=== PATIENT | female | born 1995 | race Caucasian/White ===

== ENCOUNTER 2016-10-27 12:34 | Emergency (ER) | payer MEDICAID ==
--- NOTE | 2016-10-27 13:03 | ED Physician Chart ---
Chief Complaint/HPI - Patient Information Date Seen:: 10/27/16 Time Seen:: 12:53 Chief Complaint:: DIZZINESS x 4 DAYS History of Present Illness:: This 21-year-old female has been having intermittent episodes of feeling lightheaded and like she might faint. At one point in time she did say that she feels like the room is moving around her. There is been no associated headache, nausea or vomiting. The patient has been having intermittent episodes of diarrhea as many as 5 times a day since early September. The patient has never experienced any syncopal episodes, seizure or chest pain. NO decrease in hearing or tinnitus. She has minimal if any shortness of breath but does complain of nasal congestion, cough which is productive of green to yellow sputum and sometimes blood. Patient does not take control pills has no prior history of DVT or pulmonary embolism. The symptoms of dizziness are not provoked by any type of activity or improved by any type of activity. Review of Systems - Review of Systems General/Constitutional: No fever, No chills, Weakness, No diaphoresis, No edema , No loss of appetite Skin: No skin lesions, No rash, No bruising Head: No headache, Light headed Eyes: Acuity change, No loss of vision, No pain, No diplopia ENT: No earache, No nasal drainage, No sore throat, No tinnitus, Other (nasal stuffiness.) Neck: No neck pain, No swelling, No thyromegaly, No stiffness, No mass noted Cardio Vascular: No chest pain, No palpitations, No orthopnea, No edema Pulmonary: No SOB, Cough, Sputum, Other (intermittent hemoptysis.) GI: No nausea, No vomiting, Diarrhea, No pain, No hematemesis G/U: No dysuria, No frequency, No hematuria Spinner Open End: No vaginal discharge, Other (patient has irregular menstrual periods.) Musculoskeletal: No bone or joint pain, No muscle pain Psychiatric: No prior psych history, No depression, No suicidal ideation Hematopoietic: No bruising, No lymphadenopathy Allergic/Immuno: No urticaria, No angioedema Neurological: No syncope, No focal symptoms, No weakness, No paresthesia, No headache, No seizure, Dizziness, No confusion Family Medical History - Family Member Mother History Unknown: Yes Physical Exam - Physical Examination General/Constitutional: Awake, Well-developed, well-nourished, Alert, No distress, GCS 15, Non-toxic appearing, Ambulatory Head: Atraumatic Other Head comments:: No visible or palpable evidence of acute head injury. Eyes: Lids, conjuctiva normal, PERRL, EOMI Other Eyes comments:: No nystagmus. Sclerae nonicteric. Skin: Nl inspection, No rash, No skin lesions, No ecchymosis, Well hydrated, No lymphadenopathy Other Skin comments:: No petechiae. ENMT: TM canals nl, Nasal exam nl, Lips, teeth, gums nl, Oropharynx nl, Tonsils nl Other ENMT comments:: No peritonsillar abscess or fullness. Neck: Nontender, No JVD, No nuchal rigidity, No mass, No stridor Respiratory: Nl effort/Exclusion, No Wheeze/Rhonchi/Rales Cardio Vascular: RRR, No murmur, gallop, rubs, NL S1 S2 Other Cardio Vascular comments:: Patient has good pulses in all 4 extremities. GI: No tenderness/rebounding/guarding, No organomegaly, No hernia, Normal BS's, Nondistended, No mass/bruits, No McBurney tenderness Other GI comments:: Rectal examination deferred to my discretion. If the hemoglobin comes back at a level less than 10 g percent would do a rectal exam for evaluation of GI bleeding. : No CVA tenderness Extremities: No tenderness or effusion, Full ROM, normal strength in all extremities, No edema, Normal digits & nails Neuro/Psych: Alert/oriented, DTR's symmetric, Normal sensory exam, Normal motor strength, Judgement/insight normal, Mood normal, Normal gait, No focal deficits Other Neuro/Psych comments:: No pronator drift. Normal finger-nose bilaterally. Normal heel hoang bilaterally. No dysdiadochokinesis. Romberg negative. Misc: Normal back, No paraspinal tenderness Labs/Radiology/EKG Results - Lab Results Results: Laboratory Tests 10/27/16 10/27/16 10/27/16 13:25 13:25 13:38 WBC 9.8 RBC 4.95 Hgb 14.6 Hct 42.4 MCV 85.8 MCH 29.4 MCHC Differential 34.3 RDW 10.9 L Plt Count 291 MPV 8.8 Neutrophils % 71.0 Lymphocytes % 20.4 Monocytes % 6.4 Eosinophils % 2.0 Basophils % 0.2 D-Dimer Sodium Potassium Chloride Carbon Dioxide Anion Gap BUN Creatinine Est GFR ( Amer) Est GFR (Non-Af Amer) BUN/Creatinine Ratio Glucose Calcium Total Bilirubin AST ALT Alkaline Phosphatase Total Protein Albumin Globulin Albumin/Globulin Ratio Urine Source RANDOM Urine Color YELLOW Urine Clarity CLEAR Urine pH 7.0 Ur Specific [place] 1.020 Urine Protein NEGATIVE Urine Glucose (UA) NEGATIVE Urine Ketones NEGATIVE Urine Blood SMALL H Urine Nitrate NEGATIVE Urine Bilirubin NEGATIVE Urine Urobilinogen 0.2 Ur Leukocyte Esterase NEGATIVE Urine RBC 0-2 Urine WBC 0-2 Ur Epithelial Cells MODERATE Urine Bacteria FEW Urine Test NEGATIVE 10/27/16 10/27/16 13:38 13:38 WBC RBC Hgb Hct MCV MCH MCHC Differential RDW Plt Count MPV Neutrophils % Lymphocytes % Monocytes % Eosinophils % Basophils % D-Dimer < 100 L Sodium 137 Potassium 4.0 Chloride 106 Carbon Dioxide 24.5 Anion Gap 10.5 BUN 8 Creatinine 0.7 Est GFR ( Amer) > 60.0 Est GFR (Non-Af Amer) > 60.0 BUN/Creatinine Ratio 11.4 Glucose 100 Calcium 10.0 Total Bilirubin 0.6 AST 16 ALT 14 Alkaline Phosphatase 68 Total Protein 8.1 Albumin 4.6 Globulin 3.5 Albumin/Globulin Ratio 1.3 Urine Source Urine Color Urine Clarity Urine pH Ur Specific [place] Urine Protein Urine Glucose (UA) Urine Ketones Urine Blood Urine Nitrate Urine Bilirubin Urine Urobilinogen Ur Leukocyte Esterase Urine RBC Urine WBC Ur Epithelial Cells Urine Bacteria Urine Test Urine test was negative. UA was negative for URI. NO electrolyte abnormality. NO anemia. NO Leukocytosis. - EKG Interpretations EKG Time:: 13:27 Rhythm: normal sinus rhythm with no ectopy. [place]: normal QRS axis. Rate: 74 Comments:: Normal OK interval. Normal QRS duration. Normal QT interval. No Q waves. No ST segment elevation or depression. No Brugada syndrome. No prolonged QT interval. Assessment - Assessment General Assessment: CASE SUMMARY: This 21 year old female presents with intermittent "dizziness" that began 4 days ago. The patient best characterized the "dizziness" as a sensation of light headedness or that she may faint. The patient has never had a syncopal event. At one point she said the room seemed to be moving, but she denied any spinning sensation, nausea or vomiting. She had no hearing loss or tinnitus. She has had episodes of diarrhea over the past month, but she did not have any electrolyte abnormalities or signs of dehydration. Her EKG was normal ruling out prolonged QT syndrome and Brugada's syndrome. The patient was discharged with diagnosis of Dizziness of unclear etiology. At the time of discharge the pt was steady on her feet and in no distress. MDM DDX of "DIZZINESS": NOT Labyrinthitis based on patient's history and exam. NOT cerebellar ischemia based on neurologic exam. NOT alcohol intoxicaton based on patients denial of use and physical exam. NOT prolonged QT syndrome based on EKG. NOT Brugata's syndrom based on normal EKG. NOT pulmonary embolus based on Well's score of "1" for hemoptysis and negative D-dimer. NOT electrolyte disorder based on lab results. NOT anemia based on normal HBG level. ED Septic Shock - . Is Septic Shock (SBP<90, OR Lactate>4 mmol\\L) present?: No Reassessment (Disposition) - Reassessment Reassessment Condition:: Improved - Diagnosis Diagnosis:: DIZZINESS, UNCLEAR ETIOLOGY FOLLOW UP WITH DR. ZAMORA THIS COMING WEEK. TAKE THE COPIES OF YOUR LAB RESULTS WITH YOU. RETURN TO THE ER IF YOUR SYMPTOMS WORSEN. ED Discharge Plan - Patient Disposition Admit/Discharge/Transfer: PT DISCHARGED HOME Condition at Disposition: Improved Instructions: Dizziness Accepting Physician: El Zamora [Primary Care Provider] - 1-3 Days
[2016-10-27 13:52] LABS: URINE BILIRUBIN NEGATIVE (NEGATIVE); URINE COLOR YELLOW; URINE GLUCOSE (UA) NEGATIVE (NEGATIVE)
[2016-10-27 13:53] LABS: URINE BLOOD SMALL (NEGATIVE); URINE KETONE NEGATIVE (NEGATIVE); URINE PROTEIN NEGATIVE (NEGATIVE); URINE UROBILINOGEN 0.2 E.U./dL (0.2 - 1.0)
[2016-10-27 13:54] LABS: % BASOPHILS 0.2 % (0.0-2.0); % LYMPHOCYTES 20.4 % (20.0-50.0); % MONOCYTES 6.4 % (2.0-10.0); HEMATOCRIT 42.4 % (35.0-45.0); HEMOGLOBIN 14.6 gm/dL (11.7-15.5); MEAN CELL VOLUME 85.8 fl (81-100); MEAN CORPUSCULAR HEMOGLOBIN 29.4 pg (27.0-31.0); MEAN CORPUSCULAR HGB CONC 34.3 pg (28.0-36.0); MEAN PLATELET VOLUME 8.8 fl; PLATELET COUNT 291 Th/cmm (150-400); RED BLOOD COUNT 4.95 Mil/cmm (3.80-5.10); RED CELL DISTRIBUTION WIDTH 10.9 % (11.5-20.0); WHITE BLOOD COUNT 9.8 Th/cmm (4.8-10.8)
[2016-10-27 13:58] LABS: URINE RBC 0-2 /hpf (0-5); URINE WBC 0-2 /hpf (0-5)
[2016-10-27 13:59] LABS: URINE BACTERIA FEW /hpf (NONE SEEN); URINE EPITHELIAL CELLS MODERATE /lpf (FEW)
[2016-10-27 14:05] LABS: ALB/GLOB RATIO 1.3 (1.0-1.8); ALKALINE PHOSPHATASE 68 U/L (34-104); ANION GAP 10.5 (7.0-16.0); BILIRUBIN,TOTAL 0.6 mg/dL (0.3-1.0); BUN - UREA NITROGEN 8 mg/dL (7-25); BUN/CREATININE RATIO 11.4; CARBON DIOXIDE 24.5 mEq/L (21.0-31.0); CHLORIDE 106 mEq/L (98-107); CREATININE - SERUM 0.7 mg/dL (0.6-1.2); GLUCOSE 100 mg/dL (70-105); SGOT 16 U/L (13-39); SGPT/ALT 14 U/L (7-52); SODIUM SERUM 137 mEq/L (136-145)
--- NOTE | 2016-10-27 14:25 | Diagnostic Imaging Report ---
CHEST X-RAY: AP view INDICATION: Cough and hemoptysis COMPARISON: None FINDINGS: There is no focal consolidation or pleural effusions Note, the costophrenic angles are relatively visualized. The heart is normal in size. The osseous structures demonstrate no acute abnormalities. IMPRESSION: No acute cardiopulmonary disease.
== END 2016-10-27 16:04 | disposition home or self-care (01) ==
LOC: ER 12:34
DX: R42 Dizziness and giddiness (principal); Z88.2 Allergy status to sulfonamides
CPT/HCPCS: 36415-UA; 71010-TC; 80053-TC; 81001-TC; 81025-TC; 85025-TC; 85379-TC; 93005

== ENCOUNTER 2016-11-24 11:47 | Emergency (ER) | payer MEDICAID ==
[2016-11-24 12:35] VITALS: BP 129/96
[2016-11-24 13:14] LABS: % BASOPHILS 0.1 % (0.0-2.0); % EOSINOPHILS 6.2 % (0.0-5.0); % LYMPHOCYTES 21.1 % (20.0-50.0); % MONOCYTES 6.8 % (2.0-10.0); % NEUTROPHILS 65.8 % (40.0-80.0); HEMATOCRIT 43.2 % (35.0-45.0); HEMOGLOBIN 14.5 gm/dL (11.7-15.5); MEAN CORPUSCULAR HEMOGLOBIN 28.5 pg (27.0-31.0); MEAN CORPUSCULAR HGB CONC 33.5 pg (28.0-36.0); MEAN PLATELET VOLUME 8.7 fl; NEUTROPHILE ABSOLUTE 5.9 Th/cmm (1.8-8.0); PLATELET COUNT 253 Th/cmm (150-400); RED BLOOD COUNT 5.08 Mil/cmm (3.80-5.10)
[2016-11-24 13:27] LABS: URINE COLOR YELLOW
[2016-11-24 13:28] LABS: URINE BILIRUBIN NEGATIVE (NEGATIVE); URINE GLUCOSE (UA) NEGATIVE (NEGATIVE); URINE KETONE NEGATIVE (NEGATIVE)
[2016-11-24 13:29] LABS: URINE BLOOD TRACE (NEGATIVE); URINE PROTEIN NEGATIVE (NEGATIVE); URINE UROBILINOGEN 0.2 E.U./dL (0.2 - 1.0)
[2016-11-24 13:30] LABS: ALB/GLOB RATIO 1.3 (1.0-1.8); ALKALINE PHOSPHATASE 74 U/L (34-104); ANION GAP 8.1 (7.0-16.0); BILIRUBIN,TOTAL 0.7 mg/dL (0.3-1.0); BUN - UREA NITROGEN 9 mg/dL (7-25); BUN/CREATININE RATIO 12.9; CALCIUM SERUM 9.9 mg/dL (8.6-10.3); CARBON DIOXIDE 25.7 mEq/L (21.0-31.0); CHLORIDE 105 mEq/L (98-107); CREATININE - SERUM 0.7 mg/dL (0.6-1.2); GLUCOSE 87 mg/dL (70-105); POTASSIUM SERUM 3.8 mEq/L (3.5-5.1); SGOT 21 U/L (13-39); SGPT/ALT 27 U/L (7-52); SODIUM SERUM 135 mEq/L (136-145)
[2016-11-24 13:48] LABS: AMPHETAMINE URINE NEGATIVE (NEGATIVE); BARBITURATES URINE NEGATIVE (NEGATIVE); METHADONE URINE NEGATIVE (NEGATIVE)
[2016-11-24 14:00] LABS: URINE RBC 0-2 /hpf (0-5); URINE WBC 0-2 /hpf (0-5)
[2016-11-24 14:01] LABS: URINE BACTERIA FEW /hpf (NONE SEEN); URINE EPITHELIAL CELLS MODERATE /lpf (FEW)
--- NOTE | 2016-11-24 14:13 | ED Physician Chart ---
Chief Complaint/HPI - Patient Information Date Seen:: 11/24/16 Time Seen:: 12:13 Allergies:: Allergies Allergy/AdvReac Type Severity Reaction Status Date / Time Sulfa (Sulfonamide Allergy Verified 10/27/16 12:56 Antibiotics) Vitals:: Vital Signs - 8 hr 11/24/16 11/24/16 11:57 12:04 Temp 97.9 F HR 82 RR 17 BP 129/96 129/96 O2 Sat % 97 Family Medical History - Family Member Mother History Unknown: Yes Hx Family Cancer: Yes Labs/Radiology/EKG Results - Lab Results Results: Laboratory Tests 11/24/16 11/24/16 11/24/16 12:50 12:50 12:50 WBC RBC Hgb Hct MCV MCH MCHC Differential RDW Plt Count MPV Neutrophils % Lymphocytes % Monocytes % Eosinophils % Basophils % Sodium Potassium Chloride Carbon Dioxide Anion Gap BUN Creatinine Est GFR ( Amer) Est GFR (Non-Af Amer) BUN/Creatinine Ratio Glucose Calcium Total Bilirubin AST ALT Alkaline Phosphatase Total Protein Albumin Globulin Albumin/Globulin Ratio Urine Source CLEAN C Urine Color YELLOW Urine Clarity CLEAR Urine pH 7.0 Ur Specific [place] 1.020 Urine Protein NEGATIVE Urine Glucose (UA) NEGATIVE Urine Ketones NEGATIVE Urine Blood TRACE Urine Nitrate NEGATIVE Urine Bilirubin NEGATIVE Urine Urobilinogen 0.2 Ur Leukocyte Esterase NEGATIVE Urine RBC 0-2 Urine WBC 0-2 Ur Epithelial Cells MODERATE Urine Bacteria FEW Urine Test NEGATIVE Urine Opiates Screen NEGATIVE Urine Methadone Screen NEGATIVE Ur Barbiturates Screen NEGATIVE Ur Tricyclics Screen NEGATIVE Ur Phencyclidine Scrn NEGATIVE Amphetamines Screen NEGATIVE U Methamphetamines Scrn NEGATIVE U Benzodiazepines Scrn NEGATIVE U Cocaine Metab Screen NEGATIVE U Cannabinoids Screen NEGATIVE 11/24/16 11/24/16 12:55 12:55 WBC 9.0 RBC 5.08 Hgb 14.5 Hct 43.2 MCV 85.0 MCH 28.5 MCHC Differential 33.5 RDW 11.0 L Plt Count 253 MPV 8.7 Neutrophils % 65.8 Lymphocytes % 21.1 Monocytes % 6.8 Eosinophils % 6.2 H Basophils % 0.1 Sodium 135 L Potassium 3.8 Chloride 105 Carbon Dioxide 25.7 Anion Gap 8.1 BUN 9 Creatinine 0.7 Est GFR ( Amer) > 60.0 Est GFR (Non-Af Amer) > 60.0 BUN/Creatinine Ratio 12.9 Glucose 87 Calcium 9.9 Total Bilirubin 0.7 AST 21 ALT 27 Alkaline Phosphatase 74 Total Protein 8.1 Albumin 4.5 Globulin 3.6 Albumin/Globulin Ratio 1.3 Urine Source Urine Color Urine Clarity Urine pH Ur Specific [place] Urine Protein Urine Glucose (UA) Urine Ketones Urine Blood Urine Nitrate Urine Bilirubin Urine Urobilinogen Ur Leukocyte Esterase Urine RBC Urine WBC Ur Epithelial Cells Urine Bacteria Urine Test Urine Opiates Screen Urine Methadone Screen Ur Barbiturates Screen Ur Tricyclics Screen Ur Phencyclidine Scrn Amphetamines Screen U Methamphetamines Scrn U Benzodiazepines Scrn U Cocaine Metab Screen U Cannabinoids Screen ED Septic Shock - . Is Septic Shock (SBP<90, OR Lactate>4 mmol\L) present?: No - <6hrs of presentation: Vital Signs: Vital Signs - 8 hr 11/24/16 11/24/16 11:57 12:04 Temp 97.9 F HR 82 RR 17 BP 129/96 129/96 O2 Sat % 97 ED Discharge Plan - Patient Disposition Admit/Discharge/Transfer: PT DISCHARGED HOME Condition at Disposition: Stable Instructions: Sinusitis, [id number]
--- NOTE | 2016-11-24 14:15 | Diagnostic Imaging Report ---
Head CT without intravenous contrast Indication: Headache, flulike symptoms Comparison: None Technique: Axial images were obtained from the vertex to the skull base without IV contrast. Coronal reconstructions were made. Total DLP: [id number], [id number] FINDINGS: Images of the brain obtained without contrast demonstrate no acute hemorrhage. No mass lesions identified. The ventricles and basal cisterns are patent. The haynes-white matter differentiation is preserved. There is no mass effect or midline shift. No skull fractures identified. No soft tissue swelling. Mild sinus disease is noted. IMPRESSION: No acute intracranial abnormality Mild sinus disease.
== END 2016-11-24 15:10 | disposition home or self-care (01) ==
LOC: ER 11:47
DX: J02.9 Acute pharyngitis, unspecified (principal); J32.9 Chronic sinusitis, unspecified; Z88.2 Allergy status to sulfonamides
CPT/HCPCS: 36415-UA; 70450-TC; 80053-TC; 81001-TC; 81025-TC; 84443-TC; 85025-TC

== ENCOUNTER 2017-01-25 13:48 | Emergency (ER) | payer MEDICAID ==
--- NOTE | 2017-01-25 15:00 | ED Physician Chart ---
Chief Complaint/HPI - Patient Information Date Seen:: 01/25/17 Time Seen:: 14:35 Chief Complaint:: cough and nasal discharge History of Present Illness:: Patient has had cough productive of yellow sputum and nasal discharge for the last 4 days. She's had no fever patient had similar symptoms at the end of November and had a CAT scan here which showed mild sinus disease. Allergies:: Allergies Allergy/AdvReac Type Severity Reaction Status Date / Time Sulfa (Sulfonamide Allergy Verified 10/27/16 12:56 Antibiotics) Vitals:: Vital Signs - 8 hr 01/25/17 14:22 Temp 98.9 F HR 89 RR 16 BP 131/73 O2 Sat % 98 Historian:: Patient Review:: Nurse's Note Reviewed Review of Systems - Review of Systems General/Constitutional: No fever, No chills Skin: No skin lesions Head: No headache Eyes: No loss of vision ENT: No earache, Nasal drainage Neck: No neck pain Cardio Vascular: No chest pain Pulmonary: Cough GI: No nausea, No vomiting, No diarrhea G/U: No dysuria Musculoskeletal: No bone or joint pain Endocrine: No polyuria Psychiatric: No prior psych history Hematopoietic: No bruising Allergic/Immuno: No urticaria Neurological: No syncope Past Medical History - Past Medical History Past Medical History: No significant medical hx Family History: Other (mother had rheumatic fever and lymphoma) Social History: Smoker, Other (patient smokes about one cigarette per day and drinks alcohol occasionally) Surgical History: other (umbilical hernia repair) Psychiatricy History: None Medication: None Family Medical History - Family Member Mother History Unknown: Yes Living Status: Still Living Hx Family Cancer: Yes Other Medical History: lymphoma Physical Exam - Physical Examination General/Constitutional: Well-developed, well-nourished, Alert, No distress Other Gen/Cons comments:: No tenderness over sinuses Head: Atraumatic Eyes: Lids, conjuctiva normal, PERRL Skin: Nl inspection, No rash, No skin lesions, No ecchymosis ENMT: External ears, nose nl, TM canals nl, Nasal exam nl, Lips, teeth, gums nl , Oropharynx nl, Tonsils nl Neck: No nuchal rigidity Respiratory: Nl effort/Exclusion, Clear to Auscultation, No Wheeze/Rhonchi/Rales Cardio Vascular: RRR GI: No tenderness/rebounding/guarding, No organomegaly, No hernia, Normal BS's : No CVA tenderness Extremities: Normal digits & nails Neuro/Psych: No focal deficits Misc: Normal back ED Septic Shock - . Is Septic Shock (SBP<90, OR Lactate>4 mmol\L) present?: No - <6hrs of presentation: Vital Signs: Vital Signs - 8 hr 01/25/ 14:22 Temp 98.9 F HR 89 RR 16 BP 131/73 O2 Sat % 98 Reassessment (Disposition) - Reassessment Reassessment Condition:: Unchanged - Diagnosis Diagnosis:: Acute viral syndrome; was they have possible sinusitis - Aftercare/Follow up Instructions Aftercare/Follow-Up Instructions:: Refer to Discharge Instructions Medication Prescribed:: Amoxicillin 500 mg 3 times a day for 2 weeks - Patient Disposition Condition at Disposition:: Stable, Unchanged
== END 2017-01-25 15:03 | disposition home or self-care (01) ==
LOC: ER 13:48
DX: B34.9 Viral infection, unspecified (principal); F17.200 Nicotine dependence, unspecified, uncomplicated; Z88.2 Allergy status to sulfonamides
CPT/HCPCS: Z7502

== ENCOUNTER 2017-04-03 17:47 | Emergency (ER) | payer MEDICAID ==
--- NOTE | 2017-04-03 18:34 | ED Physician Chart ---
Chief Complaint/HPI - Patient Information Date Seen:: 04/03/17 Time Seen:: 18:29 Chief Complaint:: rash l side History of Present Illness:: pt noted rash at l side abd x 2 d. recalls no insect bite etc or injury. rash bigger today. no itchy. not painfull. no fever. no sob. no chills. felt dizzy earlier. no oral edema. no airway trouble. no hx of andrew PMH. no DM is utd on d-tet. no hx of prior abscesses. Allergies:: Allergies Allergy/AdvReac Type Severity Reaction Status Date / Time Sulfa (Sulfonamide Allergy Verified 10/27/16 12:56 Antibiotics) Historian:: Patient Review of Systems - Review of Systems General/Constitutional: No fever, No chills, No weight loss, No weakness, No diaphoresis, No edema, No loss of appetite, Other (mod obese) Skin: Skin lesions, Rash, No bruising Head: No headache, No light-headedness Eyes: No loss of vision, No pain, No diplopia ENT: No earache, No nasal drainage, No sore throat, No tinnitus Neck: No neck pain, No swelling, No thyromegaly, No stiffness, No mass noted Cardio Vascular: No chest pain, No palpitations, No PND, No orthopnea, No edema Pulmonary: No SOB, No cough, No sputum, No wheezing GI: No nausea, No vomiting, No diarrhea, No pain, No melena, No hematochezia, No constipation, No hematemesis G/U: No dysuria, No frequency, No hematuria Musculoskeletal: No bone or joint pain, No back pain, No muscle pain Endocrine: No polyuria, No polydipsia Psychiatric: No prior psych history, No depression, No anxiety, No suicidal ideation Hematopoietic: No bruising, No lymphadenopathy Allergic/Immuno: No urticaria, No angioedema Neurological: No syncope, No focal symptoms, No weakness, No paresthesia, No headache, No seizure, No dizziness, No confusion, No vertigo Past Medical History - Past Medical History Past Medical History: No significant medical hx Social History: Smoker, Alcohol, Single Medication: Reviewed Family Medical History - Family Member Mother History Unknown: Yes Living Status: Still Living Hx Family Cancer: Yes Physical Exam - Physical Examination General/Constitutional: Awake, Well-developed, well-nourished, Alert, No distress, GCS 15, Non-toxic appearing, Ambulatory Other Gen/Cons comments:: alert, ambulates wo trouble. appears in nad. no posey. no sob. good color. wn/wh mod obese Head: Atraumatic Eyes: Lids, conjuctiva normal, PERRL, EOMI Skin: Nl inspection, No ecchymosis, Well hydrated, No lymphadenopathy Other Skin comments:: left mid abd has large blotch of erythema 15 cm diameter w slt warm. nontndr. perhaps slt induration but no palpable abscess. nontndr. pos nabs. no abd tndness. ENMT: External ears, nose nl, Nasal exam nl, Lips, teeth, gums nl Neck: Nontender, Full ROM w/o pain, No JVD, No nuchal rigidity, No bruit, No mass, No stridor Respiratory: Nl effort/Exclusion, Clear to Auscultation, No Wheeze/Rhonchi/Rales Cardio Vascular: RRR, No murmur, gallop, rubs, NL S1 S2 GI: No tenderness/rebounding/guarding, No organomegaly, No hernia, Normal BS's, Nondistended, No mass/bruits, No McBurney tenderness : No CVA tenderness Extremities: No tenderness or effusion, Full ROM, normal strength in all extremities, No edema, Normal digits & nails Neuro/Psych: Alert/oriented, DTR's symmetric, Normal sensory exam, Normal motor strength, Judgement/insight normal, Mood normal, Normal gait, No focal deficits Misc: normal gait, Normal back, No paraspinal tenderness Labs/Radiology/EKG Results - Lab Results Results: Laboratory Tests 04/03/17 04/03/17 04/03/17 18:41 18:41 18:41 WBC 9.4 RBC 4.36 Hgb 13.0 Hct 37.7 D MCV 86.4 MCH 29.8 MCHC Differential 34.5 RDW 11.3 L Plt Count 281 MPV 8.8 Neutrophils % 59.2 Lymphocytes % 26.8 Monocytes % 6.8 Eosinophils % 7.0 H Basophils % 0.2 Sodium 134 L Potassium 3.7 Chloride 106 Carbon Dioxide 20.8 L Anion Gap 10.9 BUN 9 Creatinine 0.8 Est GFR ( Amer) > 60.0 Est GFR (Non-Af Amer) > 60.0 BUN/Creatinine Ratio 11.3 Glucose 139 H Whole Bld Lactic Acid 1.14 Calcium 9.6 ED Septic Shock - . Is Septic Shock (SBP<90, OR Lactate>4 mmol\L) present?: No Reassessment (Disposition) - Reassessment Reassessment:: results and plan dw pt. high glucose and poss early DM dw pt. needs fu w pmd. advise avoid sweets and 3 good meals /day and roverto w pmd. rx keflex and benadryl. advise pt matt around rash perimiter and get rechk in 1-2 d. may return if worse/ fever/ more ill/ spreading redness. or worse pain. unclear if DM is actual dx...pt had a milkshake just before ED visit. Reassessment Condition:: Improved - Diagnosis Diagnosis:: 1 crash at left abdomen (insect envenomation rxn vs local cellulitis) 2 borderline DM - Aftercare/Follow up Instructions Aftercare/Follow-Up Instructions:: Counseled pt regarding lab results/diagnosis & need follow up - Patient Disposition Discharge/Transfer:: Home Condition at Disposition:: Improved
[2017-04-03 18:49] LABS: % BASOPHILS 0.2 % (0.0-2.0); % LYMPHOCYTES 26.8 % (20.0-50.0); % MONOCYTES 6.8 % (2.0-10.0); % NEUTROPHILS 59.2 % (40.0-80.0); MEAN CELL VOLUME 86.4 fl (81-100); MEAN CORPUSCULAR HEMOGLOBIN 29.8 pg (27.0-31.0); MEAN CORPUSCULAR HGB CONC 34.5 pg (28.0-36.0); MEAN PLATELET VOLUME 8.8 fl; NEUTROPHILE ABSOLUTE 5.6 Th/cmm (1.8-8.0); PLATELET COUNT 281 Th/cmm (150-400); RED BLOOD COUNT 4.36 Mil/cmm (3.80-5.10); RED CELL DISTRIBUTION WIDTH 11.3 % (11.5-20.0); WHITE BLOOD COUNT 9.4 Th/cmm (4.8-10.8)
[2017-04-03 18:56] LABS: HEMATOCRIT 37.7 % (35.0-45.0)
[2017-04-03 19:03] LABS: ANION GAP 10.9 (7.0-16.0); BUN - UREA NITROGEN 9 mg/dL (7-25); BUN/CREATININE RATIO 11.3; CALCIUM SERUM 9.6 mg/dL (8.6-10.3); CARBON DIOXIDE 20.8 mEq/L (21.0-31.0); CHLORIDE 106 mEq/L (98-107); CREATININE - SERUM 0.8 mg/dL (0.6-1.2); GLUCOSE 139 mg/dL (70-105); POTASSIUM SERUM 3.7 mEq/L (3.5-5.1); SODIUM SERUM 134 mEq/L (136-145)
[2017-04-03] MEDS: ceFAZolin 2 GM in Sodium Chloride 0.9% 100 ML IV ONE (19:22)
[2017-04-03] MEDS: Sodium Chloride 0.9% 1,000 ML IV ONE (20:04)
== END 2017-04-03 20:25 | disposition home or self-care (01) ==
LOC: ER 17:47
DX: R21 Rash and other nonspecific skin eruption (principal); R42 Dizziness and giddiness; F17.200 Nicotine dependence, unspecified, uncomplicated; Z88.2 Allergy status to sulfonamides
CPT/HCPCS: 99285; 96365; 96375; 36415; 83605; 85025; 80048; 87040 ×2; J0690; J2930; J1200; J7030